=== PATIENT | male | born 1945 | race Caucasian/White ===

== ENCOUNTER 2017-11-22 17:51 | Emergency (ER) | payer OTHER ==
[~2017-11-22] VITALS: Ht 175.3 cm; Wt 112.1 kg
[2017-11-22 19:01] LABS: APPEARANCE CLEAR ((CLEAR)); BILIRUBIN NEGATIVE; BLOOD LARGE; COLOR STRAW ((YELLOW)); GLUCOSE (STRIP) NEGATIVE; KETONES NEGATIVE; LEUKOCYTES NEGATIVE; NITRITE NEGATIVE; PROTEIN (STRIP) NEGATIVE; SPECIFIC GRAVITY 1.005 (1.000-1.030); UROBILINOGEN 0.2 MG/DL (0.2-1.0)
[2017-11-22 19:06] LABS: BACTERIA NONE SEEN /HPF; EPITHELIAL CELLS NONE SEEN /HPF; MUCUS NONE SEEN /LPF; RED BLOOD CELLS TNTC /HPF (0-5); UCUL ADDED? YES
[2017-11-22] MEDS ORDERED: CIPRO500 MG PO (19:44)
[2017-11-22 20:15] VITALS: BP 126/92
== END 2017-11-22 20:59 | disposition home or self-care (01) ==
LOC: EME 17:51
PROC: 0T2BX0Z Change Drainage Device in Bladder, External Approach (ICD-10-PCS; principal; 2017-11-22)
DX: R33.9 Retention of urine, unspecified (principal)
CPT/HCPCS: 81003; 87086; 99281; 99284